=== PATIENT | male | born 1995 | race Caucasian/White ===

== ENCOUNTER 2016-12-30 14:33 | Emergency (ER) | payer OTHER ==
[~2016-12-30] VITALS: Ht 182.9 cm; Wt 70.9 kg
[2016-12-30 14:34] VITALS: BP 154/78
[2016-12-30] MEDS ORDERED: BACT800T5 PO (14:39)
== END 2016-12-30 15:33 | disposition home or self-care (01) ==
LOC: M ED 14:33
DX: L02.211 Cutaneous abscess of abdominal wall (principal); F17.210 Nicotine dependence, cigarettes, uncomplicated

== ENCOUNTER 2017-01-07 23:30 | Emergency (ER) | payer OTHER ==
[~2017-01-07] VITALS: Ht 182.9 cm; Wt 75.0 kg
[~2017-01-07 23:30] MED LIST: BACT800T5 PO
[2017-01-08] MEDS ORDERED: CLEO300C2 PO (00:24)
[2017-01-08] MEDS ORDERED: CLINDAMYCIN 150 MG CAP PO ONE (00:30)
[2017-01-08 00:48] VITALS: BP 138/72
== END 2017-01-08 00:49 | disposition home or self-care (01) ==
LOC: M ED 23:30
DX: L03.114 Cellulitis of left upper limb (principal); F17.210 Nicotine dependence, cigarettes, uncomplicated; Z79.2 Long term (current) use of antibiotics